=== PATIENT | female | born 1970 | race Asian ===

== ENCOUNTER → 2016-03-07 | Outpatient (CLI) | payer BC | LOC: MC.RAD 08:16 | DX: Z12.31 Encounter for screening mammogram for malignant neoplasm of breast (principal) ==

== ENCOUNTER → 2017-03-07 | Outpatient (CLI) | payer BC | LOC: COL.RAD 09:45 | DX: R01.1 Cardiac murmur, unspecified (principal); R10.2 Pelvic and perineal pain ==

== ENCOUNTER → 2017-10-03 | Outpatient (CLI) | payer BC | LOC: MC.RAD 11:08 | DX: Z12.31 Encounter for screening mammogram for malignant neoplasm of breast (principal) ==

== ENCOUNTER → 2018-07-14 | Outpatient (CLI) | payer BC | LOC: COL.LAB 11:25 | DX: E22.0 Acromegaly and pituitary gigantism (principal) ==

== ENCOUNTER 2018-09-09 06:36 | Day surgery (SDC) | payer BC ==
[~2018-09-09] VITALS: Ht 162.6 cm; Wt 79.9 kg
[2018-09-09] VITALS (7 sets, daily range): BP systolic 101–159; BP diastolic 62–82; PULSE 49–61; TEMP 97.8–98.3
[2018-09-09] MEDS ORDERED: GLUCOPHAGE500 MG/TAB PO (07:59)
[2018-09-09] MEDS ORDERED: GLUCOPHAGE1000 MG PO (08:08)
[2018-09-09] MEDS ORDERED: LIPITOR 40MG TA40 MG PO (08:09)
[2018-09-09] MEDS ORDERED: NORVASC 10MG10 MG PO (08:09)
[2018-09-09] MEDS ORDERED: DOSTINEX0.5 MG/TAB PO (08:10)
[2018-09-09] MEDS ORDERED: COREG 25MG25 MG/TAB PO (08:11)
[2018-09-09] MEDS ORDERED: DIOVAN HCT 25 M1 TA1 PO (08:11)
[2018-09-09] MEDS ORDERED: NORCO 325 MG-51 TAB PO (09:33)
--- NOTE | 2018-09-09 10:12 | NUR ---
Patient returns to room 2 per cart from PACU and arouses to verbal stimuli. Temp 97.6 and room air sats 100%. Bandaids x3 dry on abdomen. Denies pain and states did feel nauseated during transfer but it is resolving. IV fluids infusing and siderails up x2. Call light in reach and allowed to rest.
--- NOTE | 2018-09-09 10:27 | NUR ---
Drowsy and continues to rest without complaints of discomfort.
--- NOTE | 2018-09-09 10:42 | NUR ---
Resting and offers no complaints of pain or nausea.
--- NOTE | 2018-09-09 10:57 | NUR ---
Arouses easily to verbal stimuli and offers no complaints of pain or nausea. Taking ice chips and sips of water.
--- NOTE | 2018-09-09 11:12 | NUR ---
More awake and talks with family on the phone.
--- NOTE | 2018-09-09 11:15 | NUR ---
Ambulatory to the bathroom with standby assist. Able to urinate and returns to room. States that she is beginning to have increasing abdominal and back pain. Given crackers to eat and will obtain oral pain medication.
--- NOTE | 2018-09-09 11:20 | NUR ---
Medicated with Counce 5mg one tab for pain rating of 5-6/10.
--- NOTE | 2018-09-09 11:40 | NUR ---
States that she is feeling better and beginning to have less discomfort. IV discontinued and patient is asking to go home. Patient notified family for ride home.
--- NOTE | 2018-09-09 12:00 | NUR ---
Given dismissal instructions and voices understanding of these. Provided script for Saunemin and follow up date and time for post op appointment.
--- NOTE | 2018-09-09 12:13 | NUR ---
Patient dismissed to home per private vehicle driven by family and taken to the front door per wheelchair and assisted into car by Carson CASTANO.
== END 2018-09-09 12:13 | disposition home or self-care (01) ==
LOC: SDCO 06:36
DX: K80.10 Calculus of gallbladder with chronic cholecystitis without obstruction (principal); E78.5 Hyperlipidemia, unspecified; I10 Essential (primary) hypertension; E11.9 Type 2 diabetes mellitus without complications; Z90.722 Acquired absence of ovaries, bilateral; Z90.79 Acquired absence of other genital organ(s); Z82.49 Family history of ischemic heart disease and other diseases of the circulatory system; Z79.84 Long term (current) use of oral hypoglycemic drugs
CPT/HCPCS: J0690; J1885; J2405; J2704; J3010; J7120; Q9967

== ENCOUNTER → 2018-10-28 | Outpatient (CLI) | payer BC ==
[~2018-10-28] MED LIST: COREG 25MG25 MG/TAB PO; DIOVAN HCT 25 M1 TA1 PO; DOSTINEX0.5 MG/TAB PO; GLUCOPHAGE1000 MG PO; GLUCOPHAGE500 MG/TAB PO; LIPITOR 40MG TA40 MG PO; NORCO 325 MG-51 TAB PO; NORVASC 10MG10 MG PO
== END ==
LOC: COL.LAB 08:05
DX: E22.0 Acromegaly and pituitary gigantism (principal)

== ENCOUNTER → 2018-12-10 | Outpatient (CLI) | payer BC | LOC: COL.LAB 08:08 | DX: E22.0 Acromegaly and pituitary gigantism (principal) ==

== ENCOUNTER → 2019-01-29 | Outpatient (CLI) | payer BC ==
[2019-01-29 09:10] LABS: ANION GAP 7 mmol/L (7-16); BLOOD UREA NITROGEN 23 mg/dL (7-17); CARBON DIOXIDE 30 mmol/L (22-30); CHLORIDE 106 mmol/L (98-107); CREATININE, serum 0.67 (0.52-1.25); GLUCOSE 102 mg/dL (74-106); SODIUM 142 mmol/L (137-145)
[2019-01-29 09:32] LABS: PROLACTIN < 1.4 ng/mL (3.0-18.6)
== END ==
LOC: COL.LAB 08:26
PROVIDERS: Internal Medicine Endocrinology, Diabetes & Metabolism
DX: D35.2 Benign neoplasm of pituitary gland (principal); E22.0 Acromegaly and pituitary gigantism

== ENCOUNTER → 2019-04-24 | Outpatient (CLI) | payer BC | LOC: MC.RAD 07:15 | DX: Z12.31 Encounter for screening mammogram for malignant neoplasm of breast (principal) ==

== ENCOUNTER → 2020-08-31 | Outpatient (CLI) | payer BC ==
[2020-08-31 10:28] LABS: CALCIUM 9.3 mg/dL (8.4-10.2); CREATININE, serum 0.7 (0.52-1.25); POTASSIUM 3.6 mmol/L (3.4-5.0)
[2020-08-31 23:13] LABS: CORTISOL, AM (0800) 7 ug/dL (3-20); ESTRADIOL <10 pg/mL (()); T3 FREE (TRI-IODOTHYRONINE) 2.7 pg/mL (1.7-3.7)
== END ==
LOC: COL.LAB 08:38
DX: E22.0 Acromegaly and pituitary gigantism (principal)

== ENCOUNTER → 2021-03-29 | Outpatient (CLI) | payer BC | LOC: COL.RAD 08:27 | DX: D25.1 Intramural leiomyoma of uterus (principal); Z90.722 Acquired absence of ovaries, bilateral ==

== ENCOUNTER → 2021-05-04 | Outpatient (CLI) | payer BC | LOC: MC.RAD 14:17 | DX: Z12.31 Encounter for screening mammogram for malignant neoplasm of breast (principal) ==